=== PATIENT | female | born 1945 | race Caucasian/White ===

== ENCOUNTER 2019-11-09 16:50 | Inpatient (IN) ==
[2019-11-09] MEDS ORDERED: DILTIAZEM 50 MG/10 ML VIAL IV STA (17:44)
[2019-11-09] MEDS ORDERED: dilTIAZem Drip 125 MG/125 ML PREMIX IV SCH (18:00)
[2019-11-09 18:02] LABS: PT Patient Result 10.9 SECS (9.6-12.2); Partial Thromboplastin Time 24.8 SECS (20.8-36.0)
[2019-11-09] MEDS ORDERED: DILTIAZEM 25 MG/5 ML VIAL IV ONE (18:11)
[2019-11-09] MEDS ORDERED: FUROSEMIDE 40 MG/4 ML VIAL IV STA (18:27)
[2019-11-09] MEDS ORDERED: MAGNESIUM SULF RIDER 2 GM in PREMIX 1 EACH IV STA (18:37)
[2019-11-09] MEDS ORDERED: ONDANSETRON 4 MG/2 ML VIAL IV PRN (19:34)
[2019-11-09] MEDS ORDERED: MAGNESIUM SULF RIDER 1 GM in PREMIX 1 EACH IV ONE (19:44)
[2019-11-09] MEDS ORDERED: GLUCAGON 1 MG VIAL IM PRN (19:44)
[2019-11-09] MEDS ORDERED: DEXTROSE 10% 250 ML BAG IV PRN (19:44)
[2019-11-09] MEDS ORDERED: AMIODARONE INJ 150 MG in DEXTROSE 5% 100 ML IV ONE (19:46)
[2019-11-09] MEDS ORDERED: AMIODARONE INJ 450 MG in DEXTROSE 5% 241 ML IV SCH (20:00)
[2019-11-09 20:13] LABS: Risk Ratio 4.83; VLDL CHOLESTEROL 22.6 MG/DL
[2019-11-09 23:07] LABS: Basophils # 0.1 10*3/uL (0.0-0.2); Basophils % 1.1 % (0.0-0.8); Eosinophils # 0.3 10*3/uL (0.0-0.87); Eosinophils % 3.7 % (0.00-10.9); Hematocrit 36.8 VOL% (35.7-47.0); Hemoglobin 11.8 GM/DL (12.0-16.0); Immature Granulocytes % 0.5 %; Immature Granulocytes Absolute 0.04 #; Lymphocytes % 26.4 % (21.3-54.2); Mean Corpuscular HGB Conc 32.1 GM/DL (32-36); Mean Corpuscular Volume 89.8 FL (87-102); Mean Platelet Volume 9.7 FL (9.6-12.0); Monocytes % 5.4 % (1.7-12.7); Neutrophils % 62.9 % (38.7-73.9); Platelet Count 197 T/CUMM (130-400); Red Cell Distribution Width 14.3 % (9.3-17.3); White Blood Count 7.6 T/CUMM (4-12)
[2019-11-09 23:55] LABS: Albumin 3.4 G/DL (3.4-5.0); Bilirubin,Total 0.8 MG/DL (0.2-1.0); Calcium 9.6 MG/DL (8.5-10.1); Osmolality,Calculated 278.7 MOS/KG (273-304); Total Protein 6.2 G/DL (6.4-8.3)
[2019-11-10] MEDS: INSULIN LISPRO 100 UNIT/ML SUBCUT SCH ×4 (00:51→18:24)
[2019-11-10 01:01] LABS: Basophils % 0.6 % (0.0-0.8); Eosinophils # 0.3 10*3/uL (0.0-0.87); Eosinophils % 4.1 % (0.00-10.9); Hematocrit 34.6 VOL% (35.7-47.0); Hemoglobin 11.3 GM/DL (12.0-16.0); Immature Granulocytes % 0.6 %; Immature Granulocytes Absolute 0.04 #; Lymphocytes # 1.7 10*3/uL (1.4-4.0); Lymphocytes % 23.9 % (21.3-54.2); Mean Corpuscular HGB Conc 32.7 GM/DL (32-36); Mean Platelet Volume 9.9 FL (9.6-12.0); Monocytes % 5.6 % (1.7-12.7); Neutrophils % 65.2 % (38.7-73.9); Platelet Count 187 T/CUMM (130-400); Red Blood Count 3.93 MC/CUMM (3.8-5.5); Red Cell Distribution Width 14.3 % (9.3-17.3); White Blood Count 7.3 T/CUMM (4-12)
[2019-11-10 01:16] LABS: Calcium 9.4 MG/DL (8.5-10.1); Osmolality,Calculated 282.4 MOS/KG (273-304)
[2019-11-10 01:21] LABS: Troponin I 0.024 NG/ML (0.00-0.045)
[2019-11-10] MEDS: AMIODARONE INJ 450 MG in DEXTROSE 5% 241 ML IV SCH ×3 (02:34→10:03)
[2019-11-10] MEDS ORDERED: ENOXAPARIN 80 MG/0.8 ML SYRINGE SUBCUT SCH (03:30)
[2019-11-10] MEDS: IPRATROPIUM 500 MCG/2.5 ML NEB RESP TX SCH ×2 (07:59→15:52)
[2019-11-10 08:30] LABS: Troponin I 0.024 NG/ML (0.00-0.045)
[2019-11-10] MEDS ORDERED: POTASSIUM CHLORIDE 20 MEQ TABLET PO ONE ×2 (08:30→13:22)
[2019-11-10] MEDS ORDERED: ASPIRIN CHEW 81 MG TABLET PO SCH ×2 (09:00→13:23)
[2019-11-10] MEDS ORDERED: FUROSEMIDE 40 MG/4 ML VIAL IV SCH (09:00)
[2019-11-10] MEDS: PANTOPRAZOLE 40 MG TABLET PO SCH (09:50)
[2019-11-10] MEDS: ASCORBIC ACID 500 MG TABLET PO SCH ×2 (10:09→23:24)
[2019-11-10] MEDS: SPIRONOLACTONE 25 MG TABLET PO SCH (13:02)
[2019-11-10] MEDS ORDERED: DILTIAZEM CD 240 MG CAPSULE PO SCH (13:30)
[2019-11-10] MEDS: APIXABAN 5 MG TABLET PO SCH ×2 (14:46→23:23)
[2019-11-10] MEDS: MAGNESIUM CHLORIDE 64 MG TABLET PO SCH ×2 (14:46→23:22)
[2019-11-10] MEDS ORDERED: ATORVASTATIN 20 MG TABLET PO SCH (21:00)
[2019-11-10] MEDS: POTASSIUM CHLORIDE 20 MEQ TABLET PO SCH (23:23)
[2019-11-10] MEDS: DILTIAZEM CD 240 MG CAPSULE PO SCH (23:23)
[2019-11-11] MEDS: INSULIN LISPRO 100 UNIT/ML SUBCUT SCH ×3 (00:31→12:49)
[2019-11-11] MEDS: IPRATROPIUM 500 MCG/2.5 ML NEB RESP TX SCH ×3 (00:34→15:35)
[2019-11-11] MEDS: AMIODARONE INJ 450 MG in DEXTROSE 5% 241 ML IV SCH ×2 (02:11→14:31)
[2019-11-11 05:37] LABS: Basophils # 0.1 10*3/uL (0.0-0.2); Eosinophils # 0.4 10*3/uL (0.0-0.87); Eosinophils % 6.4 % (0.00-10.9); Hemoglobin 11.2 GM/DL (12.0-16.0); Immature Granulocytes % 0.3 %; Immature Granulocytes Absolute 0.02 #; Lymphocytes # 1.8 10*3/uL (1.4-4.0); Lymphocytes % 29.2 % (21.3-54.2); Mean Corpuscular Volume 90.2 FL (87-102); Monocytes % 6.1 % (1.7-12.7); Platelet Count 192 T/CUMM (130-400); Red Blood Count 3.88 MC/CUMM (3.8-5.5); Red Cell Distribution Width 14.6 % (9.3-17.3); White Blood Count 6.2 T/CUMM (4-12)
[2019-11-11 05:59] LABS: Calcium 9.9 MG/DL (8.5-10.1); Osmolality,Calculated 279.8 MOS/KG (273-304)
[2019-11-11] MEDS: SPIRONOLACTONE 25 MG TABLET PO SCH (09:40)
[2019-11-11] MEDS: DILTIAZEM CD 240 MG CAPSULE PO SCH (09:40)
[2019-11-11] MEDS: POTASSIUM CHLORIDE 20 MEQ TABLET PO SCH (09:42)
[2019-11-11] MEDS: APIXABAN 5 MG TABLET PO SCH (09:42)
[2019-11-11] MEDS: PANTOPRAZOLE 40 MG TABLET PO SCH (09:43)
[2019-11-11] MEDS: ASCORBIC ACID 500 MG TABLET PO SCH (09:43)
[2019-11-11] MEDS: MAGNESIUM CHLORIDE 64 MG TABLET PO SCH (09:43)
[2019-11-11] MEDS ORDERED: MAGNESIUM SULF RIDER 2 GM in PREMIX 1 EACH IV ONE (10:01)
[2019-11-11 14:31] VITALS: BP 142/64
== END 2019-11-11 15:32 | disposition home or self-care (01) | DRG 308 ==
LOC: N.ED 16:50 → N.EDINP 19:34 → N.TELEN 20:28
PROVIDERS: ADMIT Internal Medicine; ATTEND Internal Medicine